=== PATIENT | female | born 1995 | race Caucasian/White ===

== ENCOUNTER 2017-03-09 23:55 | Inpatient (IN) | payer MEDICAID, OTHER ==
[~2017-03-09] VITALS: Ht 157.5 cm; Wt 75.2 kg
[~2017-03-09 23:55] MED LIST: PREN1TAB62 PO
[2017-03-10 00:17] VITALS: BP 126/66; PULSE 86; RESP 21
[2017-03-10 00:37] VITALS: Ht 157.5 cm; Wt 75.2 kg
[2017-03-10] MEDS ORDERED: LACTATED RINGER'S 500 ML IV ONE (01:00)
--- NOTE | 2017-03-10 01:57 | RADRPT ---
PROCEDURE: ULTRASOUND BIOPHYSICAL PROFILE CLINICAL INDICATION: 21-year-old female with contractions for viability. TECHNIQUE: Multiple sonographic images were obtained in order to perform a biophysical profile The images were reviewed on a PACS workstation. COMPARISON: None. FINDINGS: There is a single viable intrauterine gestation. There is a vertex presentation. Cardiac activity i s present at 148 beats per minute. The placenta is posterior. The results of the biophysical profil e are as follows: breathing movement = 2/2 Gross body movement = 2/2 tone = 2/2 Qualitative amniotic fluid volume = 2/2 Amniotic fluid index equals 7.7 cm. This yields a biophysical profile score of 8/8. IMPRESSION: 1. Biophysical profile score is 8/8. 2. The amniotic fluid index equals 7.7 cm. .Hal Penny MD, MD Date Time Electronically viewed and signed by .Hal Penny MD, MD on 03/10/2017 01:57 .M/
[2017-03-10 02:02] LABS: ADD SCAN DIFF NO
[2017-03-10 02:04] LABS: BASOPHILS % 0.3 % (0.0-2.0); EOSINOPHILS % 0.1 % (0.0-7.0); HEMATOCRIT 31.6 % (37.0-47.0); HEMOGLOBIN 10.8 g/dl (12.0-16.0); LYMPHOCYTES # 1.4 10^3/ul (0.8-2.9); LYMPHOCYTES % 12.4 % (15.0-51.0); MEAN CORPUSCULAR HEMOGLOBIN 29.6 pg (29.0-33.0); MEAN CORPUSCULAR HGB CONC 34.2 g/dl (32.0-37.0); MEAN CORPUSCULAR VOLUME 86.6 fl (82.0-101.0); MEAN PLATELET VOLUME 10.5 fl (7.4-10.4); MONOCYTE # 0.8 10^3/ul (0.3-0.9); MONOCYTES % 6.7 % (0.0-11.0); NEUTROPHIL # 9.3 10^3/ul (1.6-7.5); PLATELET COUNT 214 10^3/UL (140-415); RED BLOOD COUNT 3.65 10^6/ul (4.20-5.40); RED CELL DISTRIBUTION WIDTH 13.4 % (11.5-14.5); WHITE BLOOD COUNT 11.6 10^3/ul (4.8-10.8)
[2017-03-10 02:28] LABS: ALBUMIN 3.9 g/dl (3.3-4.9); ALBUMIN/GLOBULIN RATIO 1.39; BILIRUBIN,INDIRECT 0.2 mg/dl (0-1.1); BILIRUBIN,TOTAL 0.2 mg/dl (0.2-1.3); CALCIUM 8.9 mg/dl (8.4-10.2); CREATININE 0.49 mg/dl (0.44-1.00); POTASSIUM 3.4 mmol/L (3.5-5.1); TOTAL PROTEIN 6.7 g/dl (6.1-8.1); URIC ACID 3.8 mg/dl (3.1-7.9)
[2017-03-10 02:41] LABS: ADD UMIC YES; UR ASCORBIC ACID 40 mg/dL (NEGATIVE); UR BILIRUBIN (Dip) NEGATIVE (NEGATIVE); UR BLOOD (Dip) NEGATIVE (NEGATIVE); UR CLARITY SLIGHTLY CLOUDY (CLEAR); UR COLOR AMBER (YELLOW); UR GLUCOSE (Dip) NEGATIVE (NEGATIVE); UR KETONES (Dip) 2+ mg/dL (NEGATIVE); UR LEUKOCYTE ESTERASE (Dip) TRACE Leu/ul (NEGATIVE); UR MUCUS MANY /HPF (NONE SEEN); UR NITRITE (Dip) NEGATIVE (NEGATIVE); UR RBC 2 /HPF (0-5); UR SPECIFIC GRAVITY (Dip) 1.026 (1.003-1.030); UR SQUAMOUS EPITHELIAL CELL FEW /HPF (FEW); UR TOTAL PROTEIN (Dip) 1+ mg/dl (NEGATIVE); UR UROBILINOGEN (Dip) 2+ mg/dL (NEGATIVE)
[2017-03-10] MEDS: LACTATED RINGER'S 1,000 ML IV SCH ×2 (02:53→05:13)
[2017-03-10 03:00] LABS: BARBITURATES Negative (NEGATIVE)
[2017-03-10 03:05] LABS: BENZODIAZEPINES Negative (NEGATIVE); CANNABINOIDS Negative (NEGATIVE); COCAINE Negative (NEGATIVE); OPIATES Negative (NEGATIVE)
[2017-03-10] MEDS ORDERED: LACTATED RINGER'S 1,000 ML IV SCH (03:07)
--- NOTE | 2017-03-10 03:22 | HP ---
Date/Time of Note Date/Time of Note DATE: 03/10/17 TIME: 03:18 OB - History Hx of Present Chief Complaint: contractions Estimated Due Date: Mar 23, 2017 : 2 Para: 1 Spontaneous : 0 Therapeutic : 0 Care: Limited Care Ultrasounds: Other (no records available) Obstetrical Complications: None, Other (no visits for past 2 months) Medical Complications: None Past Family/Social History * Past Medical, Surgical, Family and Obstetric Histories reviewed from chart. GBS Status: Unknown OB Admission Exam Vital Signs Vital Signs Vital Signs Date Time Temp Pulse Resp B/P Pulse Ox O2 Delivery O2 Flow Rate FiO2 03/10/17 00:17 99.5 86 21 126/66 Room Air Physical Exam HEENT: WNL Heart: Rhythm Normal Lungs: Clear, Equal Abdomen: WNL Extremities: Normal Reflexes: Normal Cervical Dilatation: 4cm Effacement: 75% Membranes: Intact Accelerations: Accelerations Present Last 72 hours Lab Results CBC & BMP 03/10/17 01:35 Liver Function Test 03/10/17 01:35 Alanine Aminotransferase (ALT/SGPT) 45 Albumin 3.9 Alkaline Phosphatase 267 H Aspartate Amino Transf (AST/SGOT) 52 H Direct Bilirubin 0.00 Total Protein 6.7 OB Assessment/Plan Reason for admission: active labor Plan: Expectant Management MAGALIS MACK MD Mar 10, 2017 03:21
[2017-03-10] MEDS ORDERED: OXYTOCIN 30 UNITS/LR 500 ML IV PRN (03:30)
[2017-03-10] MEDS ORDERED: AMPICILLIN 2 GM/NS (PMX) 100 ML IV ONE (03:30)
[2017-03-10] MEDS ORDERED: LIDOCAINE 1% (MPF) 30 ML INJ INJ PRN (03:30)
[2017-03-10] MEDS ORDERED: METHYLERGONOVINE 0.2 MG INJ IM PRN (03:30)
[2017-03-10] MEDS ORDERED: BUTORPHANOL 2 MG INJ IV PRN (03:30)
[2017-03-10] MEDS ORDERED: LACTATED RINGER'S 1,000 ML IV PRN (03:30)
[2017-03-10] MEDS ORDERED: MISOPROSTOL 200 MCG TAB PR PRN (03:30)
[2017-03-10] MEDS ORDERED: CARBOPROST 250 MCG INJ IM PRN (03:30)
[2017-03-10 03:51] LABS: INR 0.99; PROTIME 13.1 Sec (12.2-14.2)
[2017-03-10 03:52] LABS: PARTIAL THROMBOPLASTIN TIME 29.3 Sec (25.0-35.0)
[2017-03-10] MEDS ORDERED: FENTAnyl 2MCG/ML-ROPIV 0.2% 100 ML ONE (04:29)
[2017-03-10] MEDS ORDERED: NALOXONE (0.4 MG/ML) INJ IV PRN (05:30)
[2017-03-10] MEDS ORDERED: FENTAnyl 2MCG/ML-ROPIV 0.2% 100 ML BAG EPI SCH (05:30)
[2017-03-10] MEDS ORDERED: ACETAMINOPHEN/CODEINE #3 TAB PO PRN ×3 (07:30→12:00)
[2017-03-10] MEDS ORDERED: OXYTOCIN 30 UNITS/LR 500 ML IV SCH ×3 (07:30→11:51)
[2017-03-10] MEDS ORDERED: AMPICILLIN 1 GM/NS (PMX) 50 ML IV SCH (07:30)
[2017-03-10] MEDS ORDERED: IBUPROFEN 600 MG TAB PO PRN (07:30)
--- NOTE | 2017-03-10 09:15 | LDN ---
Date/Time of Note Date/Time of Note DATE: 03/10/17 TIME: 09:08 Delivery Summary OF A BABY BOY FROM OA POSITION ,PLACENTA SPONTANEOUS EXPULSION INSPECTED COMPLETE BLOOD LOSS 250 CC Weeks of Gestation 38.1/7 Placenta Delivered: Spontaneously Meconium: none Episiotomy: No Perineal laceration: 1 Laceration repair: FIS DEGREE PERINRAL LAC ,REPAIRED WITH 2-0 CC Anesthesia type: Epidural Estimated blood loss: 250 Sponge & Needle done & correct: Yes All needle counts correct: Yes Any foreign bodies felt in the: No Problems: Delivery Information Sex Infant Sex: male Apgars 1 Minute: 8 5 Minute: 9 Suctioning Nose & mouth suctioned at jax: Yes Delee suction performed: No Umbilical Cord Umbilical cord with: 3 Vessels Cord Blood was obtained: No HAM COVARRUBIAS MD Mar 10, 2017 09:15
[2017-03-10 11:30] VITALS: BP 132/65; PULSE 88; RESP 17
[2017-03-10] MEDS ORDERED: WITCH HAZEL/GLYCERIN PAD PR PRN (12:00)
[2017-03-10] MEDS ORDERED: BENZOCAINE 20% 56 ML SPRAY TOP PRN (12:00)
[2017-03-10] MEDS ORDERED: LANOLIN 7 GM TUBE TOP PRN (12:00)
[2017-03-10] MEDS ORDERED: DIBUCAINE 1% 30 GM OINT PR PRN (12:00)
[2017-03-10] MEDS ORDERED: OXYCODONE/ASPIRIN (4.88/325) TAB PO PRN ×2 (12:00)
[2017-03-10] MEDS ORDERED: ACETAMINOPHEN 325 MG TAB PO PRN (12:00)
[2017-03-10] MEDS ORDERED: ONDANSETRON 4 MG INJ IV PRN (12:00)
[2017-03-10] MEDS: IBUPROFEN 600 MG TAB PO SCH ×3 (12:58→23:57)
[2017-03-10 16:00] VITALS: BP 116/59; PULSE 87; RESP 16
[2017-03-10 20:00] VITALS: BP 132/73; PULSE 97; RESP 19
[2017-03-10] MEDS: SENNA/DOCUSATE NA (8.6MG/50MG) TAB PO SCH (20:42)
[2017-03-11] VITALS: BP 126/69; PULSE 82; RESP 17
[2017-03-11 04:15] VITALS: BP 114/63; PULSE 84; RESP 17
[2017-03-11] MEDS: IBUPROFEN 600 MG TAB PO SCH ×3 (05:37→18:13)
[2017-03-11 07:35] VITALS: BP 109/72; PULSE 80; RESP 17
[2017-03-11] MEDS: SENNA/DOCUSATE NA (8.6MG/50MG) TAB PO SCH ×2 (08:36→21:55)
[2017-03-11 08:39] LABS: ADD SCAN DIFF NO
[2017-03-11 08:44] LABS: BASOPHILS % 0.3 % (0.0-2.0); EOSINOPHILS # 0.1 10^3/ul (0.0-0.5); EOSINOPHILS % 0.9 % (0.0-7.0); HEMATOCRIT 30.2 % (37.0-47.0); HEMOGLOBIN 10.1 g/dl (12.0-16.0); LYMPHOCYTES # 2.3 10^3/ul (0.8-2.9); LYMPHOCYTES % 21.6 % (15.0-51.0); MEAN CORPUSCULAR HEMOGLOBIN 29.8 pg (29.0-33.0); MEAN CORPUSCULAR HGB CONC 33.4 g/dl (32.0-37.0); MEAN CORPUSCULAR VOLUME 89.1 fl (82.0-101.0); MEAN PLATELET VOLUME 10.2 fl (7.4-10.4); MONOCYTE # 0.8 10^3/ul (0.3-0.9); MONOCYTES % 7.9 % (0.0-11.0); NEUTROPHIL # 7.3 10^3/ul (1.6-7.5); NEUTROPHILS % 68.6 % (39.0-77.0); PLATELET COUNT 197 10^3/UL (140-415); RED BLOOD COUNT 3.39 10^6/ul (4.20-5.40); RED CELL DISTRIBUTION WIDTH 13.7 % (11.5-14.5); WHITE BLOOD COUNT 10.7 10^3/ul (4.8-10.8)
--- NOTE | 2017-03-11 13:55 | PN ---
Date/Time of Note Date/Time of Note DATE: 03/11/17 TIME: 13:54 OB Subjective Subjective Subjective day 1 Afebrile vital signs are stable abdomen soft uterus firm lochia normal extremity normal ambulation encouraged Laboratory Tests Test 03/11/17 08:20 White Blood Count 10.710^3/ul Red Blood Count 3.3910^6/ul Hemoglobin 10.1g/dl Hematocrit 30.2% Mean Corpuscular Volume 89.1fl Mean Corpuscular Hemoglobin 29.8pg Mean Corpuscular Hemoglobin Concent 33.4g/dl Red Cell Distribution Width 13.7% Platelet Count 98865^3/UL Mean Platelet Volume 10.2fl Neutrophils % 68.6% Lymphocytes % 21.6% Monocytes % 7.9% Eosinophils % 0.9% Basophils % 0.3% Nucleated Red Blood Cells % 0.0/100WBC Neutrophils # 7.310^3/ul Lymphocytes # 2.310^3/ul Monocytes # 0.810^3/ul Eosinophils # 0.110^3/ul Basophils # 0.010^3/ul Nucleated Red Blood Cells # 0.010^3/ul Current Medications Medications (Trade) Dose Ordered Sig/Yk Route PRN Reason Start Time Stop Time Status Last Admin Dose Admin Lactated Ringer's 500 ml @ 500 mls/hr Q1H ONCE IV 03/10/17 01:00 03/10/17 18:46 DC 03/10/17 01:39 Lactated Ringer's 1,000 ml @ 125 mls/hr Q8H IV 03/10/17 01:00 03/10/17 18:46 DC 03/10/17 05:13 Lactated Ringer's 1,000 ml @ 125 mls/hr Q8H IV 03/10/17 03:07 03/10/17 11:55 DC Ampicillin 100 ml @ 100 mls/hr ONCE ONCE IV 03/10/17 03:30 03/10/17 04:29 DC 03/10/17 03:40 Ampicillin (Ampicillin 1 Gm/ NS (Pmx)) 50 ml @ 100 mls/hr Q4H IV 03/10/17 07:30 03/10/17 11:55 DC 03/10/17 07:32 Butorphanol Tartrate (Stadol) 2 mg Q2H PRN IV PAIN 03/10/17 03:30 03/10/17 11:55 DC Lidocaine 30 ml 30 ml ONCE PRN INJ EPISIOTOMY/TEARING 03/10/17 03:30 03/10/17 11:55 DC Lactated Ringer's 1,000 ml @ 2,000 mls/hr Q30M PRN IV PRE-EPIDURAL BOLUS 03/10/17 03:30 03/10/17 11:55 DC 03/10/17 03:41 Oxytocin/Lactated Ringer's 500 ml @ 0 mls/hr ONCE PRN IV For Hemorrhage Management 03/10/17 03:30 Methylergonovine Maleate (Methergine) 0.2 mg ONCE PRN IM VAGINAL BLEEDING 03/10/17 03:30 Carboprost Tromethamine (Hemabate) 250 mcg ONCE PRN IM VAGINAL BLEEDING 03/10/17 03:30 03/10/17 11:55 DC Misoprostol 1000 mcg 1,000 mcg ONCE PRN [place] VAGINAL BLEEDING 03/10/17 03:30 Fentanyl/ Ropivacaine 100 ml @ STK-MED ONCE .ROUTE 03/10/17 04:29 03/10/17 04:30 DC Naloxone HCl (Narcan) 0.2 mg Q2M PRN IV FOR RESP RATE 8 OR LESS 03/10/17 05:30 Fentanyl/ Ropivacaine 100 ml 100 ml EPIDURAL (PCEA) EPI 03/10/17 05:30 03/10/17 11:55 DC Oxytocin/Lactated Ringer's 500 ml @ 125 mls/hr ONCE -MAY REPEAT X1 IV 03/10/17 07:30 03/10/17 11:55 DC 03/10/17 09:17 Oxytocin/Lactated Ringer's 500 ml @ 125 mls/hr ONCE IV 03/10/17 07:30 03/10/17 18:46 DC 03/10/17 09:42 Ibuprofen (Motrin) 600 mg ONCE PRN PO Mild Pain (Pain Score 1-3) 03/10/17 07:30 03/10/17 12:02 DC Acetaminophen/ Codeine Phosphate 2 tab 2 tab ONCE PRN PO Moderate to Severe Pain (4-10) 03/10/17 07:30 03/10/17 12:02 DC Oxytocin/Lactated Ringer's 500 ml @ 125 mls/hr Q4H IV 03/10/17 11:51 03/10/17 18:46 DC 03/10/17 13:34 Ibuprofen (Motrin) 600 mg Q6 PO 03/10/17 12:00 03/11/17 12:19 Acetaminophen (Tylenol Tab) 650 mg Q4H PRN PO PAIN LEVEL 1-5 03/10/17 12:00 Acetaminophen/ Codeine Phosphate (Tylenol No.3) 1 tab Q4H PRN PO PAIN LEVEL 1-5 03/10/17 12:00 Acetaminophen/ Codeine Phosphate (Tylenol No.3) 2 tab Q4H PRN PO PAIN LEVEL 6-10 03/10/17 12:00 Oxycodone/Aspirin (Percodan) 1 tab Q3H PRN PO PAIN LEVEL 1-5 03/10/17 12:00 Oxycodone/Aspirin (Percodan) 2 tab Q3H PRN PO PAIN LEVEL 6-10 03/10/17 12:00 Ondansetron HCl (Zofran Inj) 4 mg Q6H PRN IV NAUSEA AND/OR VOMITING 03/10/17 12:00 Senna/Docusate Sodium (Senokot-S) 1 tab BID PO 03/10/17 21:00 03/11/17 08:36 Witch Lupis/ Glycerin (Tucks Pads) 1 pad BEDSIDE MEDICATION PRN [place] HEMORRHOID/EPISIOTMY PAIN 03/10/17 12:00 03/10/17 17:46 Benzocaine (Dermoplast Supply) 1 spray BEDSIDE MEDICATION PRN TOP HEMORRHOID/EPISIOTMY PAIN 03/10/17 12:00 03/10/17 17:46 Dibucaine (Nupercainal) 1 applic BEDSIDE MEDICATION PRN [place] HEMORRHOID/EPISIOTMY PAIN 03/10/17 12:00 Lanolin (Kpx-C-Zpxcvs) 1 applic BEDSIDE MEDICATION PRN TOP BEDSIDE FOR ITALIA TO NIPPLES 03/10/17 12:00 03/11/17 08:36 Measles/Mumps/ Rubella Vaccine Live (Mmr Ii Vaccine) 0.5 ml ONCE ONCE SC* 03/12/17 09:00 03/12/17 09:01 HAM COVARRUBIAS MD Mar 11, 2017 13:55
[2017-03-11 14:10] LABS: RUBELLA ANTIBODY - IGG 1.37 index
[2017-03-11 16:00] VITALS: BP 112/65; PULSE 68; RESP 17
[2017-03-11 19:35] VITALS: BP 124/63; PULSE 83; RESP 18
[2017-03-12] MEDS: IBUPROFEN 600 MG TAB PO SCH ×3 (00:11→11:59)
[2017-03-12 04:10] VITALS: BP 122/72; PULSE 65; RESP 17
[2017-03-12 08:00] VITALS: BP 113/53; PULSE 76; RESP 19
[2017-03-12] MEDS: SENNA/DOCUSATE NA (8.6MG/50MG) TAB PO SCH (08:43)
[2017-03-12] MEDS ORDERED: MEASLES,MUMPS,RUBELLA VACCINE INJ SC* ONE (09:00)
--- NOTE | 2017-03-12 09:54 | PD.PPDC ---
[facility] Discharge Instruction Condition Patient Condition: Good Diet Diet: Resume Regular Diet Follow-up Follow-up with Physician: 2, Week/Weeks Provider Information: Appointment clinic in 2 weeks for check Return to clinic for [facility] Instructions: Fever greater than 101 Chills Worsening abdominal pain Excessive Vaginal Bleeding More than 2 pads per hour Unable to tolerate diet OB Instructions: Breast Tenderness Depression Blurried Vision Headache HAM COVARRUBIAS MD Mar 12, 2017 09:54
--- NOTE | 2017-03-12 09:57 | DS ---
Date/Time of Note Date/Time of Note DATE: 03/12/17 TIME: 09:55 Discharge Summary Admission/Discharge Info Admit Date/Time Mar 10, 2017 at 02:50 Discharge Date/Time March 12, 2017 at 950 Discharge Diagnosis Day 2 post normal vaginal delivery Patient Condition: Good Procedures Normal vaginal delivery Hx of Present Illness Term in labor Hospital Course Satisfactory uneventful Home Meds Reported Medications Vit-Iron Fumarate-FA ( Vitamin Tablet) 1 Each Tablet, 1 EACH PO DAILY 12/03/13 Follow-up Plan instructions given recommended to make appointment in 2 weeks for check at the clinic Primary Care Provider Not On Staff Doctor Time spent on discharge: < 30 minutes HAM COVARRUBIAS MD Mar 12, 2017 09:57
== END 2017-03-12 14:50 | disposition home or self-care (01) | DRG 775 ==
LOC: OBT 23:55 → L-D 23:55 → OBT 03-10 02:50 → L-D 03-10 02:50 → PP1 03-10 11:40
PROVIDERS: ADMIT Obstetrics & Gynecology; ATTEND Obstetrics & Gynecology
PROC: 10E0XZZ Delivery of Products of Conception, External Approach (ICD-10-PCS; principal; 2017-03-10)
PROC: 0HQ9XZZ Repair Perineum Skin, External Approach (ICD-10-PCS; 2017-03-10)
DX: O70.0 First degree perineal laceration during delivery (principal); Z37.0 Single live birth; Z3A.38 38 weeks gestation of pregnancy
CPT/HCPCS: 36415; 62319; 76818; 80053; 80307; 81001; 84560; 85025; 85610; 85730; 86592; 86703; 86762; 86900; 86901; 87340; 96360; 96361; 99464; G0463; J0290; J2590; J3010; J7120